=== PATIENT | male | born 1995 | race Caucasian/White ===

== ENCOUNTER 2017-04-04 18:14 | Emergency (ER) | payer OTHER, BC ==
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
--- NOTE | 2017-04-04 19:04 | CT ---
CT cervical spine Technique: Multiple axial sections were obtained from above C1 inferiorly to the mid T1 level. Reconstructed sagittal and coronal images were reviewed. Comparison: No prior cervical spine imaging. Findings: Vertebral body heights and disc spaces are maintained. No bony central or bony neural foraminal stenosis is seen. Posterior skull base shows a fracture which is midline and extends inferiorly to the left side which extends through the middle ear cavity into the left temporal bone involving the roof of the temporomandibular joints. This fracture involves the jugular foramen with a small amount of air being seen within the jugular foramen. No fracture is seen within the cervical spine. Kyphosis is noted on the reconstructed sagittal images either positional or due to muscle spasm. No abnormal subluxation is seen. Impression: 1. Skull base fracture which extends into the left jugular foramen and into the left middle ear cavity as well as involving the roof of the left temporomandibular joint. Air is noted within the left jugular foramen. Fracture shows no displacement. 2. Kyphosis within the cervical spine either positional or due to muscle spasm. 3. Nothing else acute is seen on CT study of the cervical spine. Diagnostic code #5
--- NOTE | 2017-04-04 19:05 | CT ---
Head CT Technique: Multiple axial sections through the brain were obtained. Intravenous contrast was not utilized. Comparison: No previous head CT exam. Study correlated with CT cervical spine performed on the same date. Findings: Skull base fracture is seen as described on CT report which begins within the mid occipital bone and then extends on the left side involving the left jugular foramen as well as middle ear cavity and within the roof of the temporomandibular joint then extending into the left temporal bone. Small amount of soft tissue air is seen within the left temporal fossa intracranially. Small amount of extra-axial intracranial air also seen within the left parietal region. No abnormal parenchymal densities are seen. No evidence of intracranial hemorrhage. No midline shift or mass effect is seen. Impression: 1. Left skull base fracture as noted above. Intracranial air is seen within the left temporal fossa as well air extra-axial within the left parietal region. 2. No acute intracranial hemorrhage or other abnormality is seen. Diagnostic code #5
--- NOTE | 2017-04-05 09:39 | CR ---
Chest: Portable view of the chest was obtained. Comparison: No prior chest x-ray. Heart size and mediastinum are normal. Lungs are clear. Bony structures are grossly intact. Impression: 1. Nothing acute is identified on portable chest x-ray. Diagnostic code #1
== END 2017-04-04 20:04 ==
LOC: JD.ED 18:14
DX: S02.102A Fracture of base of skull, left side, initial encounter for closed fracture (principal); S09.90XA Unspecified injury of head, initial encounter; F17.200 Nicotine dependence, unspecified, uncomplicated; W22.8XXA Striking against or struck by other objects, initial encounter
CPT/HCPCS: 36415; 70450; 71045; 72125; 80053; 82962; 85025; 85610; 85730; 93005; 99285; G0480; 93010